=== PATIENT | male | born 1990 ===

== ENCOUNTER 2023-04-20 19:49 | Emergency (ER) | payer SELFPAY ==
[~2023-04-20] VITALS: Ht 177.8 cm; Wt 82.0 kg
[2023-04-20 19:55] VITALS: BP 130/88; PULSE 63; RESP 16; TEMP 98.4; O2SAT 99
[2023-04-20] MEDS ORDERED: IBUPROFEN 600MG TABLET PO ONE (20:45)
[2023-04-20] MEDS ORDERED: IBUP-2029 MT (20:46)
[2023-04-20] MEDS ORDERED: IBUPROFEN 600MG TABLET PO NR (22:15)
== END 2023-04-20 20:28 | disposition home or self-care (01) ==
LOC: ER 19:49
DX: R07.89 Other chest pain (principal)
CPT/HCPCS: 71045; 93005; 99283